=== PATIENT | male | born 1940 | race Caucasian/White ===

== ENCOUNTER 2017-02-09 11:33 | Inpatient (IN) | payer OTHER ==
--- NOTE | 2017-02-09 11:45 | CPEKG ---
Heart Rate: 64 RR Interval: 938 P-R Interval: 252 QRSD Interval: 98 QT Interval: 412 QTC Interval: 425 P [place]: 0 QRS [place]: -34 T Wave [place]: 168 EKG Severity - ABNORMAL ECG - EKG Impression: SINUS ARRHYTHMIA, RATE 50-75 EKG Impression: FIRST DEGREE AV BLOCK EKG Impression: PROBABLE INFERIOR INFARCT, AGE INDETERMINATE EKG Impression: ANTERIOR INFARCT, AGE INDETERMINATE EKG Impression: ST DEPRESSION, CONSIDER ISCHEMIA, LAT LEADS Electronically Signed By: Nirmala Gallegos 09-Feb-2017 17:12:40
--- NOTE | 2017-02-09 11:49 | EDPHY ---
H & P Stated Complaint: pre syncopal event collapsed while hiking HPI/ROS: CHIEF COMPLAINT: Near-syncopal episode, fall HISTORY OF PRESENT ILLNESS: This patient is a 76 year old male with history of coronary artery disease s/p CABG 2010 arriving via EMS following a fall earlier today while on a walk. He went for a long walk this morning, and while finishing second kilometer walking up moderate hill, he felt his legs become weak and he "toppled over", falling and rotating to his right side. Men working on a house nearby witnessed his fall and called EMS. He endorses right-sided chest pain which he feels is muscular. He does not think he passed out and remembers the entire incident. He did not eat breakfast this morning and has not had much water to drink, and believes his symptoms may be related to dehydration. He has taken his medications today as prescribed. He had a similar episode a couple years ago walking on an inclined trail when he did pass out momentarily and fell. He was transported by ambulance for evaluation at that time as well, and admitted for observation. He currently feels weak and "fuzzy-headed" as if he would be dizzy if he were standing. No shortness of breath, fever, vomiting or diarrhea, no blood in his stool, or other associated symptoms. REVIEW OF SYSTEMS: A ten point review of systems was performed and is negative with the exception of the items mentioned in the HPI. - Personal History Current Tetanus/Diphtheria Vaccine: Yes Tetanus Vaccine Date: 2015 - Medical/Surgical History PMH: 1. Hypertension 2. Coronary artery disease status post 7-vessel CABG 01/2011 3. Type II Diabetes Mellitus 4. Prostate cancer 5. Right knee arthroscopy 6. Radical prostatectomy Hx Asthma: No Hx Chronic Respiratory Disease: No Hx Diabetes: Yes Hx Cardiac Disease: Yes Hx Renal Disease: No Hx Cirrhosis: No Hx Alcoholism: No Hx HIV/AIDS: No Hx Splenectomy or Spleen Trauma: No - Social History Smoking Status: Former smoker Additional Social History: . Lives in [place]. Former tobacco use, quit 40 years ago. Occasional alcohol use. 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 - Physical Exam Exam: General Appearance: Alert. Vital signs reviewed. Blood pressure 98/61. Head: Normocephalic, atraumatic. No Bartlett's sign. Eyes: Pupils equal and round, no conjunctival injection, no discharge. Anicteric. ENT, Mouth: Mucous membranes are dry, no oropharyngeal erythema or edema. Neck: No lymphadenopathy, supple. Nontender over cervical spine in the midline. Respiratory: Lungs are clear to auscultation; no wheezes, rales, or rhonchi. Cardiovascular: Bradycardic. No murmur, rub, or gallop. Chest: Tenderness to right of sternum, mid thoracic anterior ribcage. Gastrointestinal: Abdomen is soft and nontender, no masses or organomegaly, bowel sounds normal. Skin: Warm and dry, no rashes on exposed skin, normal color. Back: Nontender to palpation over the thoracolumbar spine. No CVAT. Extremities: No lower extremity edema, no calf tenderness or swelling. Neurological: Alert and oriented. Moving all four extremities easily and equally. Cranial nerves II through XII are examined and are intact (visual acuity not tested). Strength is 5 over 5 bilaterally with testing of all major motor groups. Sensation is intact to light touch over all 4 extremities. Psychiatric: Normal affect. Constitutional: Initial Vital Signs Temperature (C) 36.5 C 02/09/17 11:39 Heart Rate 65 02/09/17 11:39 Respiratory Rate 19 02/09/17 11:39 Blood Pressure 98/61 L 02/09/17 11:39 O2 Sat (%) 93 02/09/17 11:39 O2 Delivery Mode Room Air Allergies/Adverse Reactions: famotidine [From Pepcid] Allergy (Severe, Verified 02/09/17 11:37) Itching Home Medications: Medication Instructions Recorded Ascorbic Acid [Vitamin C 500 mg 500 mg PO DAILY 04/22/16 (*)] Carvedilol [Coreg (*)] 25 mg PO BIDMEAL 04/22/16 Cholecalciferol Vit D3 [Vitamin D3 1,000 units PO DAILY 04/22/16 (*)] Donepezil HCl [Aricept 5 MG (*)] 5 mg PO DAILY 04/22/16 Liraglutide [Victoza 3-Dio] 1.8 mg SC HS 04/22/16 Oxybutynin Chloride [Ditropan 5mg 10 mg PO DAILY 04/22/16 (RX)] Sertraline HCl [Zoloft 25mg (*)] 25 mg PO HS 04/22/16 amLODIPine BESYLATE [Norvasc 5 mg 5 mg PO HS 04/22/16 (*)] Aspirin EC [Aspirin EC 81 mg (*)] 81 mg PO DAILY 02/09/17 Medical Decision Making - Diagnostics EKG Interpretation: EKG interpreted by me in [facility]. Imaging: Discussed imaging studies w/ registration rep Radiologist ED Course/Re-evaluation: 76-year-old male who reportedly fell because of diffuse leg weakness while walking. He denies loss of consciousness or syncope. He denies any chest pain at the time of this fall. There were no preceding symptoms. He uses a walking stick for balance. His only complaint at the time of my evaluation is of right- sided chest pain. In review of his records, I see that he has had 2 previous similar events that caused him to be admitted to the hospital--1 in February of 2014 and 1 in April of 2016. He was initially hypotensive with a blood pressure of 96/62. He received 500 mL of normal saline, started EN route. His hypotension resolved and did not return while in the emergency department. In fact, he became hypertensive. He received an additional 1000 mL of IV normal saline in the emergency department. Today's EKG is abnormal. He has a 1st degree AV block with a variable rate. P waves are present, this is a sinus rhythm. Has evidence of an inferior infarct with inferior Q-waves and also anterior Q-waves. There is ST depression laterally that is seen on an EKG in January of 2011. Blood work today reveals a normal troponin. This is being repeated at 4:30 p.m.. Blood sugar is elevated at 215. Creatinine is mildly elevated at 1.5. D-dimer was elevated at 1.5--there is concern about PE in the setting of possible syncope. Chest x-ray was performed (sixth rib fracture seen,no pneumonia, cardiomegaly) and this was followed by CT angiogram of the chest. No pulmonary embolus. He does have acute rib fractures of ribs 6, 7, and 8 on the right. There is a small pulmonary contusion. No pneumothorax. He has not required pain medication for his rib fractures. Ultimately, the patient stood the bedside prior to an attempted ambulation. He felt lightheaded and was unable to walk because of being off balance. He was not hypotensive at that time. I re-evaluated him. Aside from this ataxia, there were no neurologic findings on exam. CT scan of the head was obtained. No acute intracranial hemorrhage or subdural. 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 When I relayed these findings to the patient he was surprised to hear that he had ever had a stroke. I made a 2nd attempt to stand at the bedside. It is my impression that he has truncal ataxia and I remain concerned about a cerebellar process. He will need an MRI scan of the brain with and without contrast to further assess. Clearly cannot return home, as he is unable to walk. I spoke with his who tells me that he normally ambulates in the house independently. He does use a walking stick when out and about. She states that he has some balance problems but nothing like what we are seeing today. She also tells me that he has what she calls "transient loss of consciousness". She describes episodes in which he lglazes over and falls to the ground. He appears to lose consciousness briefly. This occurs infrequently. No seizure activity has ever been noted. He is being admitted to the hospitalist service. I have spoken with Dr. Bernard Wellington who will consult as a trauma specialist, given that this patient has fallen and fractured 3 ribs. I have also consulted with Dr. Vazquez, neurology , who agrees that this patient would not be a candidate for tPA. He does not recommend stroke alert or any further emergency department evaluation. He feels that the evaluation can be completed as an inpatient. At this point, do not know if today's event is the result of acute CVA, sequelae of previous CVA, syncopal, or even possibly seizure activity. - Data Points Laboratory Results: Laboratory Results 02/09/17 11:30 02/09/17 11:30 Medications Given: Acetaminophen (Tylenol) 650 mg PO Q4HRS PRN PRN Reason: Pain, Mild/Fever, Can Take PO Stop: 08/08/17 17:29 Last Admin: 02/10/17 05:38 Dose: 650 mg Amlodipine Besylate (Norvasc) 5 mg PO HS [facility] Stop: 08/09/17 20:59 Last Admin: 02/11/17 20:41 Dose: 5 mg Aspirin Buffered (Aspirin Ec) 81 mg PO DAILY [facility] Stop: 08/10/17 08:59 Last Admin: 02/11/17 09:24 Dose: 81 mg Carvedilol (Coreg) 12.5 mg PO BIDMEAL [facility] Stop: 08/09/17 08:59 Last Admin: 02/11/17 18:09 Dose: 12.5 mg Clopidogrel Bisulfate (Plavix) 75 mg PO DAILY [facility] Stop: 08/09/17 16:59 Last Admin: 02/11/17 09:24 Dose: 75 mg Donepezil HCl (Aricept) 5 mg PO DAILY [facility] Stop: 08/09/17 08:59 Last Admin: 02/11/17 09:24 Dose: 5 mg Heparin Sodium (Porcine) (Heparin Sc Injection) 5,000 unit SC Q8 [facility] Stop: 08/08/17 21:59 Last Admin: 02/12/17 06:07 Dose: 5,000 unit Insulin Human Lispro (Humalog Lispro) 0 unit SC TIDMEAL [facility] PRN Reason: Protocol Stop: 08/08/17 17:59 Last Admin: 02/11/17 18:10 Dose: 2 unit Lidocaine (Lidoderm 5%) 1 ea TD DAILY [facility] Stop: 08/10/17 10:59 Last Admin: 02/11/17 15:26 Dose: 1 ea Magnesium Hydroxide (Milk Of Magnesia) 30 ml PO DAILY PRN; Protocol PRN Reason: Constipation Stop: 08/10/17 10:49 Last Admin: 02/11/17 12:39 Dose: 30 ml Miscellaneous Information (Patch Removal) 1 ea TD DAILY21 [facility] Stop: 08/10/17 20:59 Last Admin: 02/12/17 04:50 Dose: 1 ea Oxycodone HCl (Oxycodone Ir) 5 mg PO Q4HRS PRN PRN Reason: Pain, Severe Able to Take PO Stop: 02/19/17 17:43 Last Admin: 02/11/17 09:24 Dose: 5 mg Senna/Docusate Sodium (Senokot-S) 1 - 2 tab PO BID [facility] PRN Reason: Protocol Stop: 08/10/17 10:49 Last Admin: 02/11/17 20:40 Dose: 2 tab Sertraline HCl (Zoloft) 25 mg PO HS [facility] Stop: 08/08/17 20:59 Last Admin: 02/11/17 20:40 Dose: 25 mg Discontinued Medications Aspirin (Aspirin) 325 mg PO DAILY [facility] Stop: 02/04/18 17:29 Last Admin: 02/10/17 10:06 Dose: 325 mg Atorvastatin Calcium (Lipitor) 40 mg PO DAILY [facility] Stop: 08/08/17 18:14 Last Admin: 02/11/17 09:23 Dose: 40 mg Carvedilol (Coreg) 25 mg PO BIDMEAL [facility] Stop: 08/09/17 08:59 Last Admin: 02/10/17 10:11 Dose: 25 mg Sodium Chloride (Ns) 1,000 mls @ 0 mls/hr IV ONCE ONE PRN Reason: Wide Open Stop: 02/09/17 13:19 Last Admin: 02/09/17 13:31 Dose: 1,000 mls Sodium Chloride (Ns) 1,000 mls @ 100 mls/hr IV CONT [facility] Stop: 02/10/17 03:29 Last Admin: 02/09/17 19:38 Dose: 1,000 mls Perflutren Lipid Microsphere (Definity) 1.1 mg IV ONCE ONE Stop: 02/10/17 12:16 Last Admin: 02/10/17 14:24 Dose: Not Given Departure - Departure Disposition: [facility] Inpatient Acute Clinical Impression: Ataxia Fall Qualifiers: Encounter type: initial encounter Qualified Code(s): W19.XXXA - Unspecified fall, initial encounter Ribs, multiple fractures Qualifiers: Encounter type: initial encounter Fracture type: closed Laterality: right Qualified Code(s): S22.41XA - Multiple fractures of ribs, right side, initial encounter for closed fracture Condition: Fair Report Scribed for: Nirmala Gallegos Report Scribed by: Amirah Nance Date of Report: 02/09/17 Time of Report: 12:27 Physician Review and Approval Statement: 02/09/17 11:49 Portions of this note were transcribed by the medical lab scientist. I, Dr. Nirmala Gallegos, personally performed the history, physical exam, and medical decision- making; and confirmed the accuracy of the information in the transcribed note.
[2017-02-09 12:52] LABS: % IMMATURE GRANULYOCYTES 0.6 % (0.0-1.1); ABSOLUTE IMMATURE GRANULOCYTES 0.04 10^3/uL (0.00-0.10); ADD DIFF? NO; ADD MORPH? NO; ADD SCAN? NO; ATYPICAL LYMPHOCYTE FLAG 0 (0-99); FRAGMENT RBC FLAG 0 (0-99); HEMOGLOBIN 13.7 g/dL (13.7-17.5); LEFT SHIFT FLG 0 (0-99); LIPEMIA HEMOLYSIS FLAG 90 (0-99); MEAN CELL HEMOGLOBIN CONCENTR. 34.3 g/dL (32.4-36.7); MEAN CELL VOLUME 90.5 fL (81.5-99.8); MEAN PLATELET VOLUME 11.6 fL (8.7-11.7); PLATELET CLUMPS FLAG 0 (0-99); PLATELET COUNT 214 10^3/uL (150-400); RED BLOOD CELL COUNT 4.42 10^6/uL (4.40-6.38); RED CELL DISTRIBUTION WIDTH 13.3 % (11.5-15.2)
[2017-02-09 12:57] LABS: ANION GAP 16 mEq/L (8-16); CARBON DIOXIDE 21 mEq/l (22-31); CHLORIDE 102 mEq/L (97-110); CREATININE 1.5 mg/dL (0.7-1.3); GLOMERULAR FILTRATION RATE 46; GLUCOSE 215 mg/dL (70-100); POTASSIUM 4.5 mEq/L (3.5-5.2); SODIUM 139 mEq/L (134-144)
[2017-02-09 13:18] LABS: TROPONIN I 0.017 ng/mL (0-0.034)
[2017-02-09] MEDS ORDERED: NS 1,000 ML IV ONE (13:18)
[2017-02-09] MEDS ORDERED: IOPAMIDOL (ISOVUE 370) 100 ML BTL IV ONE (13:31)
[2017-02-09] MEDS ORDERED: ONDANSETRON 4 MG/2 ML VIAL IVP PRN (17:30)
[2017-02-09] MEDS ORDERED: LABETALOL HCL 5 MG/ML 20 ML MDV IVP PRN (17:30)
[2017-02-09] MEDS ORDERED: ONDANSETRON DISINTEGRATING 4 MG TAB PO PRN (17:30)
[2017-02-09] MEDS ORDERED: NS 1,000 ML IV SCH (17:30)
[2017-02-09] MEDS ORDERED: D50W 25 GM/50 ML SYR IVP PRN (17:38)
[2017-02-09] MEDS ORDERED: HYDROmorphONE/DILAUDID 1 MG/ML SYR IVP PRN (17:44)
--- NOTE | 2017-02-09 17:54 | PDGENHP ---
History and Physical - Chief Complaint fall vs syncope - History of Present Illness 76 yo male with h/o CAD, hypertension and type 2 diabetes presents to ED via EMS after a fall while hiking. He reports going out for a hike and on the final stretch uphill to his house, he felt weak, SOB, and went down. Apparently this was witnessed by some construction workers and EMS was called. He denied any CP or heart palpitations prior to the event. He does endorse feeling a little dizzy prior to falling. He doesn't think he hit his head and denies LOC. He fell onto his right side and xrays in the ED showed acute rib fractures. He had a similar event in 2013 at which time he was admitted to the hospital after a fall while hiking. That was thought due to hypovolemia. A brain MRI in 09/2015 showed an old right cerebellar infarct and microvascular disease. He is unaware of a prior stroke. He is also treated for dementia. CT in the ED was negative for a bleed. The prior cerebellar infarct was noted, along with old basal ganglia and lacunar infarcts. No acute infarct was identified. He was unable to stand due to profound weakness and dizziness. He is admitted to the hospital for further evaluation. History Information - Allergies/Home Medication List Allergies/Adverse Reactions: famotidine [From Pepcid] Allergy (Severe, Verified 02/09/17 11:37) Itching Home Medications: Ascorbic Acid [Vitamin C 500 mg (*)] 500 mg PO DAILY 04/22/16 [Last Taken ] Carvedilol [Coreg (*)] 25 mg PO BIDMEAL 04/22/16 [Last Taken 02/09/17] Cholecalciferol Vit D3 [Vitamin D3 (*)] 1,000 units PO DAILY 04/22/16 [Last Taken 02/09/17] Donepezil HCl [Aricept 5 MG (*)] 5 mg PO DAILY 04/22/16 [Last Taken 04/22/16] Liraglutide [Victoza 3-Dio] 1.8 mg SC HS 04/22/16 [Last Taken 02/08/17] Oxybutynin Chloride [Ditropan 5mg (RX)] 10 mg PO DAILY 04/22/16 [Last Taken ] Sertraline HCl [Zoloft 25mg (*)] 25 mg PO HS 04/22/16 [Last Taken 02/08/17] amLODIPine BESYLATE [Norvasc 5 mg (*)] 5 mg PO HS 04/22/16 [Last Taken 02/08/17] Aspirin EC [Aspirin EC 81 mg (*)] 81 mg PO DAILY 02/09/17 [Last Taken 02/09/17] I have personally reviewed and updated: family history, medical history, social history, surgical history - Past Medical History coronary artery disease, dementia, diabetes type 2, hypertension, recent fracture - Surgical History Reports: coronary bypass surgery Additional surgical history: CABG x6 2010 - Family History Positive for: non-pertinent - Social History Smoking Status: Former smoker Alcohol Use: None Drug Use: None Additional social history: Lives independently with his , who is present at the bedside. Review of Systems ROS: 10pt was reviewed & negative except for what was stated in HPI & below Physical Exam Temp Pulse Resp BP Pulse Ox 36.3 C 53 L 17 145/84 H 90 L 02/09/17 17:13 02/09/17 17:13 02/09/17 17:13 02/09/17 17:13 02/09/17 17:13 Constitutional: no apparent distress Eyes: PERRL Ears, Nose, Mouth, Throat: moist mucous membranes Cardiovascular: regular rate and rhythym, no murmur, rub, or gallop Respiratory: no respiratory distress, clear to auscultation Gastrointestinal: normoactive bowel sounds, soft, non-tender abdomen Genitourinary: no bladder fullness Skin: warm Musculoskeletal: other (no facial asymmetry, speech fluent, pronator drift neg, 5/5 proximal LLE strength 4/5 proximal RLE strength) Neurologic: AAOx3 Psychiatric: interacting appropriately, poor memory Lab Data & Imaging Review 02/09/17 11:30 02/09/17 11:30 WBC 6.51 10^3/uL (3.80-9.50) 02/09/17 11:30 RBC 4.42 10^6/uL (4.40-6.38) 02/09/17 11:30 Hgb 13.7 g/dL (13.7-17.5) 02/09/17 11:30 Hct 40.0 % (40.0-51.0) 02/09/17 11:30 MCV 90.5 fL (81.5-99.8) 02/09/17 11:30 MCH 31.0 pg (27.9-34.1) 02/09/17 11:30 MCHC 34.3 g/dL (32.4-36.7) 02/09/17 11:30 RDW 13.3 % (11.5-15.2) 02/09/17 11:30 Plt Count 214 10^3/uL (150-400) 02/09/17 11:30 MPV 11.6 fL (8.7-11.7) 02/09/17 11:30 Neut % (Auto) 64.4 % (39.3-74.2) 02/09/17 11:30 Lymph % (Auto) 24.1 % (15.0-45.0) 02/09/17 11:30 [place] % (Auto) 6.9 % (4.5-13.0) 02/09/17 11:30 Eos % (Auto) 2.9 % (0.6-7.6) 02/09/17 11:30 Baso % (Auto) 1.1 % (0.3-1.7) 02/09/17 11:30 Nucleat RBC Rel Count 0.0 % (0.0-0.2) 02/09/17 11:30 Absolute Neuts (auto) 4.19 10^3/uL (1.70-6.50) 02/09/17 11:30 Absolute Lymphs (auto) 1.57 10^3/uL (1.00-3.00) 02/09/17 11:30 Absolute Monos (auto) 0.45 10^3/uL (0.30-0.80) 02/09/17 11:30 Absolute Eos (auto) 0.19 10^3/uL (0.03-0.40) 02/09/17 11:30 Absolute Basos (auto) 0.07 10^3/uL (0.02-0.10) 02/09/17 11:30 Absolute Nucleated RBC 0.00 10^3/uL (0-0.01) 02/09/17 11:30 Immature Gran % 0.6 % (0.0-1.1) 02/09/17 11:30 Immature Gran # 0.04 10^3/uL (0.00-0.10) 02/09/17 11:30 D-Dimer 1.51 ug/mLFEU (0.00-0.50) H 02/09/17 11:30 Sodium 139 mEq/L (134-144) 02/09/17 11:30 Potassium 4.5 mEq/L (3.5-5.2) 02/09/17 11:30 Chloride 102 mEq/L (97-110) 02/09/17 11:30 Carbon Dioxide 21 mEq/l (22-31) L 02/09/17 11:30 Anion Gap 16 mEq/L (8-16) 02/09/17 11:30 BUN 14 mg/dL (7-23) 02/09/17 11:30 Creatinine 1.5 mg/dL (0.7-1.3) H 02/09/17 11:30 Estimated GFR 46 02/09/17 11:30 Glucose 215 mg/dL (70-100) H 02/09/17 11:30 Calcium 10.0 mg/dL (8.5-10.4) 02/09/17 11:30 Troponin I 0.015 ng/mL (0-0.034) 02/09/17 16:38 Assessment & Plan Assessment: Fall / LE weakness - Query CVA vs orthostasis / volume depletion. CT neg for bleed or acute infarct. Some concern for a posterior circulation event. CTPA neg for PE -MRA head and neck to r/o large vessel occlusion -Admit to neuro floor -Check orthostatic VS, hydrate with IVF's -Monitor on telemetry for cardiac etiology of fall (?syncope) -Echo ordered -Full dose ASA now and cont daily ASA -Start statin, lipid panel in am -Neurology to consult in am Hypertension - permissive hypertension while further CVA w/u as above. -IV Labetalol for SBP >220 / DBP >120 -Resume Carvedilol and Norvasc tomorrow CAD s/p 6 v. CABG in 2010 - Pt is chest pain free. Initial troponins negative x2. EKG is abnormal with downsloping ST depression in lateral leads associated with T wave inversions, concerning for ischemia. This is new from prior EKG in 2013. -repeat EKG now to assess for dynamic changes -cont to trend troponin -cont ASA, BB, statin -likely needs stress test prior to dc Rib fractures - secondary to fall. -pain control, IS, prn O2 -trauma service to consult Type 2 DM - will check a1c and give SSI for glycemic control. TOMMY - Cr 1.5, up from baseline of 1 -NS overnight and recheck in am Pulmonary nodules - incidental finding on CT. -Outpt f/u imaging AAA - 4.5 cm. Will also need outpt f/u. Full code DVT PPLX - high risk, Heparin Dispo - inpt. Will likely require >48 hrs hospitalization for manage
[2017-02-09] MEDS: ACETAMINOPHEN 325 MG TAB PO PRN ×2 (18:04→22:21)
[2017-02-09] MEDS: oxyCODONE IR 5 MG TAB PO PRN ×2 (18:04→22:21)
[2017-02-09] MEDS: ASPIRIN 325 MG TAB PO SCH (18:04)
--- NOTE | 2017-02-09 18:39 | CPEKG ---
Heart Rate: 72 RR Interval: 833 P-R Interval: 256 QRSD Interval: 104 QT Interval: 400 QTC Interval: 438 P [place]: -12 QRS [place]: -40 T Wave [place]: 173 EKG Severity - ABNORMAL ECG - EKG Impression: SINUS RHYTHM EKG Impression: FIRST DEGREE AV BLOCK EKG Impression: PROBABLE INFERIOR INFARCT, AGE INDETERMINATE EKG Impression: ANTERIOR INFARCT, AGE INDETERMINATE Electronically Signed By: Rickey Cortes 10-Feb-2017 21:02:57
[2017-02-09] MEDS: ATORVASTATIN CALCIUM 40 MG TAB PO SCH (19:37)
[2017-02-09] MEDS: INSULIN LISPRO 100 UNIT/ML SC SCH (19:39)
[2017-02-09 20:07] LABS: HEMOGLOBIN A1C 7.3 % (4.0-6.0)
[2017-02-09] MEDS ORDERED: GADOBUTROL 10 ML VIAL IVP ONE (20:20)
--- NOTE | 2017-02-09 22:19 | GCON ---
[f rep st] CONSULTATION HISTORY OF PRESENT ILLNESS: This patient is a 76-year-old male with a history of coronary artery disease, status post CABG, a radical prostatectomy, type 2 diabetes, and hypertension, who presented to the emergency department after a fall while hiking on a gravel path near his home. He says he did not hit his head, and did not lose consciousness. He thinks he felt weak and perhaps a little dizzy before his fall. He says he does not recall tripping on anything. He fell mostly on his right side, and currently, his only pain is in his right anterolateral chest. He thinks he may have been dehydrated. Since being admitted, he has had 2 stable EKGs with 2 normal troponin levels taken. He has had a chest x-ray and a CT angiogram that showed fractures of the right ribs 6 through 8 with minimal displacement, pulmonary contusion. No pneumothorax, no pulmonary embolus. There has been some concern that stroke could be the cause of his presyncopal episode, and so a head CT was obtained, which showed some old infarcts with nothing definitely acute. Of note, he and his deny slurred speech, facial droop, weakness in 1 extremity, or vision changes. He does report some bilateral lower extremity weakness on occasion. He has been admitted to the medicine service for further testing and observation , and Trauma has been consulted. PAST MEDICAL HISTORY: Type 2 diabetes, coronary artery disease, hypertension, dementia. PAST SURGICAL HISTORY: Coronary artery bypass surgery, radical prostatectomy, tonsillectomy. HOME MEDICATIONS: Include amlodipine, aspirin, carvedilol, Aricept, Victoza, Ditropan, Zoloft, vitamin D, vitamin C. ALLERGIES: Famotidine causes itching. SOCIAL HISTORY: Patient is currently a nonsmoker and does not drink alcohol. He lives independently with his . FAMILY HISTORY: Noncontributory. REVIEW OF SYSTEMS: A 10-point review of systems is negative aside from that listed above. PHYSICAL EXAMINATION: GENERAL: Reveals a well-developed, well-nourished, 76- year-old male, alert and oriented, in no acute distress. HEENT: Normocephalic , atraumatic. Pupils equal and round. Tongue midline. No neck bruits. No otorrhea. PULMONARY: Clear to auscultation bilaterally. No wheezes, rhonchi, or rales. Full breath sounds. Right lateral chest wall tenderness. No clavicular tenderness. CARDIAC: Regular rate and rhythm without murmurs. ABDOMEN: Soft, nontender. No rebound. No guarding. EXTREMITIES: Warm, dry, well perfused, with palpable radial dorsalis pedis and posterior tibialis pulses. No lower extremity point tenderness. Mild small abrasion on the right knee. IMPRESSION: This is a 76-year-old male with a fall, probably presyncopal with right-sided 6 through 8 rib fractures. Rule out stroke or cardiac cause of fall. PLAN: The patient has been admitted to the medicine service, which is appropriate. They will be following up with serial troponins and EKGs. Also I believe an echo has been ordered. I see plans for a brain MRA. We will obtain a chest x-ray in the morning to confirm stability and rule out delayed pneumothorax. He also has pulmonary nodules and abdominal aortic aneurysm that had been seen on imaging, and so I will be sure to add outpatient followup instructions immediately so this does not get missed, once he is appropriate for discharge. I also discussed with Dr. Wellington, who will see the patient this evening. /[id number]/MODL MTDD
[2017-02-09] MEDS: HEPARIN 5,000 UNIT/0.5 ML SYR SC SCH (22:20)
[2017-02-09] MEDS: SERTRALINE HCL 25 MG TAB PO SCH (22:21)
[2017-02-10] MEDS: HEPARIN 5,000 UNIT/0.5 ML SYR SC SCH ×3 (05:33→20:44)
[2017-02-10] MEDS: ACETAMINOPHEN 325 MG TAB PO PRN (05:38)
[2017-02-10 05:49] LABS: ANION GAP 10 mEq/L (8-16); CALCIUM 9.6 mg/dL (8.5-10.4); CARBON DIOXIDE 21 mEq/l (22-31); CHLORIDE 107 mEq/L (97-110); CHOLESTEROL 188 mg/dL (140-220); CHOLESTEROL/HDL RATIO 3.62 RATIO (1.00-4.97); CREATININE 1.3 mg/dL (0.7-1.3); GLOMERULAR FILTRATION RATE 54; GLUCOSE 115 mg/dL (70-100); HIGH DENSITY LIPOPROTEIN 52 mg/dL (40-65); LDL/HDL RATIO 2.17 RATIO (1.00-3.64); LOW DENSITY LIPOPROTEIN 113 mg/dL (80-100); NON-HIGH DENSITY LIPOPROTEIN 136 mg/dL (90-129); POTASSIUM 3.8 mEq/L (3.5-5.2); SODIUM 138 mEq/L (134-144); TRIGLYCERIDE 116 mg/dL (40-150); VERY LOW DENSITY LIPOPROTEINS 23 mg/dL (8-25)
--- NOTE | 2017-02-10 08:32 | SOAPPROG ---
SOAP Progress Note Assessment/Plan: Assessment: Plan: Subjective: right rib fx s/p fall lungs clear, minimal pain. no specific tx for rib fx- dc when ok per primary care team. Objective: Vital Signs Temp Pulse Resp BP Pulse Ox 36.7 C 64 16 127/78 H 94 02/10/17 07:44 02/10/17 07:44 02/10/17 07:44 02/10/17 07:44 02/10/17 07:44 Microbiology 02/09/17 16:20 Gram Stain - Final Other - Tissue 02/09/17 16:20 Gram Stain - Final Other - Tissue 02/09/17 16:20 Gram Stain - Final Other - Eswab 02/09/17 16:20 Gram Stain - Final Other - Eswab Laboratory Results 02/10/17 05:20 02/09/17 02/10/17 02/11/17 05:59 05:59 05:59 Intake Total 1798 Output Total 300 Balance 1498 ICD10 Worksheet Patient Problems: Problems Problem Status Onset Ataxia Acute Fall Acute Ribs, multiple fractures Acute [place] I fracture Acute
[2017-02-10] MEDS ORDERED: CARVEDILOL 25 MG TAB PO SCH (09:00)
--- NOTE | 2017-02-10 09:55 | ECHO ---
[id number] + + [address] : : [place] [address] : : [phone] + + Adult Echocardiographic Report + -----+ :Name: Janine MERCADO Date: 02/10/2017 08:29 AM : : Hospital Admission Number: [id number] Location : 359: :: 1940 Gender: Male Height: 71 in : :Age: 76 yrs Race: WH Weight: 190 lb : :Reason For Study: Eval LV Fx : : BSA: 2.1 meters2 : :History: Ischemic Stroke w/ Bubble : + -----+ MMode/2D Measurements \T\ Calculations IVSd: 0.90 cm LVIDd: 5.6 cm FS: 25.4 % Ao root diam: 3.4 cm LVPWd: 1.2 cm LVIDs: 4.2 cm EDV(Teich): 154.5 ml ACS: 2.1 cm ESV(Teich): 77.9 ml EF(Teich): 49.5 % LVOT diam: 2.0 cm LVOT area: 3.1 cm2 Normal Measurement Values: + + :LVIDd (3.5-5.7cm) IVSd (0.6-1.1cm) LVPWd (0.6-1.1cm) Aortic Root (2.0-3.7cm)Left Atrium (1.5-4.0cm): :LV Vol(d) (76-115ml) LV Vol(s) (29-48ml) Ejec Fraction (50-65%)PV Kwabena (0.6- 1.2m/s) TV Kwabena (0.4-1.0m/s) : :MV E Kwabena (0.8-1.0m/s)MV A Kw[place] (0.3-1.0m/s)LVOT Kw[place] (0.7-1.2m/s) Asc Ao Kwabena ( 0.9-1.8m/s) : + + Doppler Measurements \T\ Calculations MV V2 mean: Ao V2 max: AI max kwabena: LV V1 max: 90.1 cm/sec 152.0 cm/sec 408.6 cm/sec 95.8 cm/sec MV mean PG: Ao max PG: AI max P.8 mmHg LV V1 max P.9 mmHg 9.2 mmHg AI dec slope: 3.7 mmHg MV V2 VTI: Ao mean PG: LV V1 mean P.6 cm 43.3 mmHg 229.2 cm/sec2 2.2 mmHg Ao V2 mean: AI P1/2t: 522.1 msec LV V1 mean: MVA(VTI): 1.7 cm2 321.0 cm/sec 68.1 cm/sec Ao V2 VTI: LV V1 VTI: 21.8 cm 194.4 cm FLACO(I,D): 0.35 cm2 FLACO(V,D): 2.0 cm2 SV(LVOT): 68.5 ml PA V2 max: PI end-d kwabena: TR max kwabena: 78.7 cm/sec 107.2 cm/sec 243.0 cm/sec PA max PG: TR max P.5 mmHg 23.6 mmHg RAP systole: 5.0 mmHg RVSP(TR): 28.6 mmHg Left Ventricle The left ventricle is normal in size. There is normal left ventricular wall thickness. Ejection Fraction = 45-50%. There is Doppler evidence for diastolic dysfunction. There are regional wall motion abnormalities as specified. Antonio-septal akinesis. Query prior CA. Right Ventricle The right ventricle is normal in size and function. Atria The left atrium is moderately dilated. Right atrial size is normal. Injection of contrast documented an interatrial shunt. A patent foramen ovale is present. Mitral Valve The mitral valve is normal. There is no mitral valve stenosis. There is trace mitral regurgitation. Tricuspid Valve There is trace to mild tricuspid regurgitation. Right ventricular systolic pressure is normal. Aortic Valve The aortic valve is trileaflet. There is mild aortic valve calcification. There is no aortic stenosis. Mild to moderate aortic regurgitation. Pulmonic Valve The pulmonic valve is normal in structure and function. There is no pulmonic valvular regurgitation. Great Vessels The aortic root is normal size. Pericardium/Pleural There is no pericardial effusion. Conclusion A complete two-dimensional transthoracic echocardiogram was performed (2D, M-mode, Doppler and color flow Doppler). Ejection Fraction = 45-50%. There is Doppler evidence for diastolic dysfunction. The left atrium is moderately dilated. Injection of contrast documented an interatrial shunt. A patent foramen ovale is present. The mitral valve is normal. There is trace mitral regurgitation. There is trace to mild tricuspid regurgitation. Right ventricular systolic pressure is normal. The aortic valve is trileaflet. There is mild aortic valve calcification. Mild to moderate aortic regurgitation. There is no pericardial effusion. Antonio-septal akinesis. Query prior CA Note: With regional wall motion abnormalities and reduced LV function. Cardiac source of emboli possible. Thrombus not identified. Consider anti- coagulation versus Definity study to further evaluate afor LV thrombus. Final Reading Physician: Sebastián Irby signed on 02/10/2017 09:54 AM Ordering Physician: Daniella Avalos Performed By: Dayron Blount, PEEWEECS
[2017-02-10] MEDS: INSULIN LISPRO 100 UNIT/ML SC SCH ×3 (10:05→18:05)
[2017-02-10] MEDS: ASPIRIN 325 MG TAB PO SCH (10:06)
[2017-02-10] MEDS: DONEPEZIL HCL 5 MG TAB PO SCH (10:06)
[2017-02-10] MEDS: oxyCODONE IR 5 MG TAB PO PRN ×2 (10:09→13:57)
[2017-02-10] MEDS: ATORVASTATIN CALCIUM 40 MG TAB PO SCH (10:09)
[2017-02-10] MEDS ORDERED: PERFLUTREN LIPID MICROSPHERES 1.1 MG/ML VIAL IV ONE (12:15)
--- NOTE | 2017-02-10 13:37 | GCON ---
[f rep st] CONSULTATION NEUROLOGY CONSULT. DATE OF CONSULTATION: 02/10/2017 REFERRING PHYSICIAN: Daniella Avalos MD CHIEF COMPLAINT: Falls. HISTORY OF PRESENT ILLNESS: The patient is a very pleasant 76-year-old gentleman who has had multiple visits recently for the same symptoms of presyncope and falls. Yesterday, he was walking along the [place] and reports he was exerting himself strenuously and was dehydrated. As he was walking home on a slight uphill he suddenly felt lightheaded for 1-2 seconds and felt the premonition he was going to fall. This is identical to previous episodes. He then fell and felt generalized weakness afterwards. He broke ribs with the fall and was brought to the emergency department via EMS. He had a head CT which showed old infarcts and MRA of the head and neck. The MRA of the neck shows chronic occlusion of the right vertebral artery, stenosis at the origin of the left vertebral artery and old right cerebellar infarction. The head MRA revealed again the occlusion of the right vertebral artery with old right cerebellar infarct. 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 In addition, he has origin of the left posterior cerebral artery from the left ICA. In regard to his left ICA, his estimated stenosis is around 40% based on the MRA neck. Diffusion-weighted imaging was done during the head MRA which showed no acute infarct. He states that overnight he got back to baseline in terms of his sensation of strength etc. He has rehydrated. His initial creatinine in the emergency department was 1.5 and now it is 1.3. He denies any focal symptoms. He felt generalized weakness with this and then afterwards perhaps more weakness in his legs and arms, but he could not be sure if it was just in his legs versus generalized weakness. Certainly no lateralized symptoms, aphasia or visual field cuts. REVIEW OF SYMPTOMS: A 10-point review was done, only pertinent in HPI. Past medical history, social history, family history, allergies, and home medications please refer to Dr. Avalos's history and physical. PHYSICAL EXAMINATION: VITAL SIGNS: Temperature 36.3, pulse 53, respirations 17 , blood pressure 145/84. GENERAL: He is in no acute distress. Very pleasant. HIGHER MENTAL FUNCTION: He is awake and alert. There is no aphasia. CRANIAL NERVES: Normal exam 2 through 7 and 12. MOTOR EXAM: He has no focal weakness or change in reflexes or tone throughout. SENSORY EXAM: Normal to light touch. COORDINATION: He does have some essential tremor with posture. Otherwise fairly accurate [id number] and [id number]. We did test his gait and he was unsteady with unassisted gait. Billing information: 70 total minutes floor reviewing past records, current angiography findings and in direct exam and counseling with the patient. TESTING: He also had an echocardiogram which showed likely changes of an old myocardial infarction with anteroseptal akinesis. There was no thrombus identified within the heart. IMPRESSION/PLAN: 1. Presyncope with fall. 2. Intracranial atherosclerosis. 3. Chronic cerebral infarctions. Overall, my impression is the patient became clinically dehydrated and had a presyncopal episode with a fall resulting in the rib fractures. Certainly, the intracranial atherosclerosis may have become symptomatic or exacerbated in the setting of of dehydration and presyncope. Fortunately, there is no evidence of acute infarction on the diffusion-weighted sequences of the brain. Going forward, in regard to his significant intracranial atherosclerosis, I think we should treat him with dual antiplatelet therapy for the time being with aspirin 81 mg daily plus Plavix 75 mg daily. I counseled him regarding R/B /A of Plavix and dual anti-platelet therapy. I counseled him regarding the findings including the stenosis of the origin of the left vertebral artery. I also recommend he see one of my colleagues in Interventional Neuroradiology, Dr. Shubham Riddle, in [place], to see if he would be a candidate for any intracranial stenting. He can stay on dual antiplatelet therapy until that consultation. In regard to his cardiac findings, certainly it appears he has had a previous myocardial infarction. He has not had an acute stroke with this hospitalization. He likely would not be an ideal candidate for oral anticoagulation based on his fall risk, etc. I will defer to my colleagues in Cardiology for any other recommendations regarding his cardiac findings. Lastly, he will likely need placement into a shelter facility for a few days to regain his baseline strength before going home. He lives independently with his and has family a few blocks away who watch over them as well. No further recommendations now. Plan discussed at length with Dr. Marinelli, his primary hospitalist. The patient will make followup with our office in the next few weeks to review his post hospital course and consultation with Dr. Shubham Riddle. Thank you for this consultation. /[id number]/MODL MTDD
--- NOTE | 2017-02-10 15:35 | ECHO ---
[id number] + + [address] : : [place] [address] : : [phone] + + Adult Echocardiographic Report + -----+ :Name: MAO MERCADOHelen Date: 02/10/2017 12:30 PM : : Hospital Admission Number: [id number] Location : 359: :: 1940 Gender: Male : :Age: 76 yrs Race: WH : :Reason For Study: Eval LV [place] with Definity : :History: Follow up on Apical Wall motion : + -----+ Left Ventricle Definity imaging enhancement was utilized and there is no evidence of an apical thrombus. Conclusion This is a limited echo using Definity to image the LV apex. Definity imaging enhancement was utilized and there is no evidence of an apical thrombus. Final Reading Physician: Sebastián Irby signed on 02/10/2017 03:33 PM Ordering Physician: Daniella Avalos Performed By: Dayron Blount, CS
--- NOTE | 2017-02-10 17:08 | HOSPPROG ---
Hospitalist Progress Note Assessment/Plan: Assessment: 76-year-old male presents with acute mechanical fall in the setting of ataxia resulting from previous posterior CVA, revisitation in the setting of hypotension, TOMMY Plan: 1. Fall. Acute, 2/2 ataxia from prior CVA revisitation - appreciate trauma eval - remains unsafe to ambulate, will require ongoing therapy assessments and SNF 2. Hypertension. Chronic, increase in bblocker in past 3 months, reduce dosage given orthostasis - cont amlodipine 3. CAD. Chronic, acute STD on EKG (personally interpreted) w/o chest pain, potentially 2/2 cerebral hypoperfusion - s/p 6 v. CABG in 2010 - get stress test in 1-2 weeks, avoid in setting of recent cerbral hypoperfusion - cont on asa/plavix/bblocker 4. Rib fractures. Acute, 2/2 fall, pain control, IS, prn O2 5. TOMMY. 2/2 hypovolemia, cont IVF and recheck Cr in AM - positive orthostatics, reduce bblocker 6. Pulmonary nodules. Outpt surveillance 7. 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 Will also need outpt f/u. 8. Vertebral artery occlusion. Chronic, w/ collateral flow as well as anterior-> post circulation, high risk for future CVA, MRI w/o acute infarct but has prior CVA - d/w Dr. Vazquez, recommends asa/plavix/statin - counseled patient that statin benefits > risks, patient will consider, goal LDL 70 (currently 110) Full code DVT PPLX - high risk, Heparin Dispo - requiring ongoing INPT for TOMMY and IVF, therapy assessments and likely SNF Subjective: Counseled patient extensively regarding the cause of his falls being hypovolemia and posterior circulation stenosis, counseled him regarding statin use Objective: Vital Signs Temp Pulse Resp BP Pulse Ox 36.8 C 64 18 132/83 H 99 02/10/17 15:18 02/10/17 15:18 02/10/17 15:18 02/10/17 15:18 02/10/17 15:18 Microbiology 02/09/17 16:20 Mycobacterial Smear (DION) - Final Other - Tissue Mycobacterial Culture - Final 02/09/17 16:20 Fungal Culture - Final Other - Tissue 02/09/17 16:20 Gram Stain - Final Other - Tissue Anaerobic Culture - Final 02/09/17 16:20 Mycobacterial Smear (DION) - Final Other - Tissue Mycobacterial Culture - Final 02/09/17 16:20 Fungal Culture - Final Other - Tissue 02/09/17 16:20 Gram Stain - Final Other - Tissue Anaerobic Culture - Final 02/09/17 16:20 Fungal Culture - Final Other - Eswab 02/09/17 16:20 Gram Stain - Final Other - Eswab Anaerobic Culture - Final 02/09/17 16:20 Fungal Culture - Final Other - Eswab 02/09/17 16:20 Gram Stain - Final Other - Eswab Anaerobic Culture - Final Laboratory Results 02/10/17 05:20 02/09/17 02/10/17 02/11/17 05:59 05:59 05:59 Intake Total 1798 200 Output Total 300 Balance 1498 200 - Time Spent With Patient Time Spent with Patient: greater than 35 minutes Time Spent with Patient: Greater than 35 minutes spent on this patients care, greater than 50% of time spent counseling, educating, and coordinating care regarding the above mentioned plan. - Physical Exam Constitutional: no apparent distress, not in pain, chronically ill appearing, No uncomfortable Cardiovascular: systolic murmur (2/6 at the sternum and apex), No irregularly irregular, No tachycardia, No edema Respiratory: no respiratory distress, no rales or rhonchi, clear to auscultation Gastrointestinal: normoactive bowel sounds, soft, non-tender abdomen, no palpable masses Neurologic: AAOx3 Psychiatric: No anxious, No agitated ICD10 Worksheet Patient Problems: Problems Problem Status Onset Fall Acute LeFort I fracture Acute Ribs, multiple fractures Acute Ataxia Acute
[2017-02-10] MEDS: CARVEDILOL 25 MG TAB PO SCH (18:05)
[2017-02-10] MEDS: CLOPIDOGREL BISULFATE 75 MG TAB PO SCH (18:16)
[2017-02-10] MEDS: SERTRALINE HCL 25 MG TAB PO SCH (20:42)
[2017-02-10] MEDS: amLODIPine BESYLATE 5 MG TAB PO SCH (20:43)
[2017-02-11] MEDS: oxyCODONE IR 5 MG TAB PO PRN ×2 (03:43→09:24)
[2017-02-11 05:17] LABS: ANION GAP 10 mEq/L (8-16); CALCIUM 9.2 mg/dL (8.5-10.4); CARBON DIOXIDE 23 mEq/l (22-31); CHLORIDE 104 mEq/L (97-110); CREATININE 1.3 mg/dL (0.7-1.3); GLOMERULAR FILTRATION RATE 54; GLUCOSE 136 mg/dL (70-100); POTASSIUM 3.7 mEq/L (3.5-5.2); SODIUM 137 mEq/L (134-144)
[2017-02-11] MEDS: HEPARIN 5,000 UNIT/0.5 ML SYR SC SCH ×3 (05:44→20:40)
[2017-02-11] MEDS: INSULIN LISPRO 100 UNIT/ML SC SCH ×3 (08:09→18:10)
[2017-02-11] MEDS: CARVEDILOL 25 MG TAB PO SCH ×2 (09:23→18:09)
[2017-02-11] MEDS: ATORVASTATIN CALCIUM 40 MG TAB PO SCH (09:23)
[2017-02-11] MEDS: DONEPEZIL HCL 5 MG TAB PO SCH (09:24)
[2017-02-11] MEDS: CLOPIDOGREL BISULFATE 75 MG TAB PO SCH (09:24)
[2017-02-11] MEDS: ASPIRIN EC 81 MG TAB PO SCH (09:24)
[2017-02-11] MEDS ORDERED: BISACODYL 10 MG SUPP PR PRN (10:50)
[2017-02-11] MEDS ORDERED: LACTULOSE 20 GM/30 ML UDCUP PO PRN (10:50)
[2017-02-11] MEDS ORDERED: POLYETHYLENE GLYCOL 3350 17 GM PKT PO PRN (10:50)
[2017-02-11] MEDS ORDERED: MAGNESIUM HYDROXIDE 30 ML UDCUP PO PRN (10:50)
--- NOTE | 2017-02-11 11:44 | HOSPPROG ---
Hospitalist Progress Note Assessment/Plan: Assessment: 76-year-old male presents with acute mechanical fall in the setting of ataxia resulting from previous posterior CVA, revisitation in the setting of hypotension, TOMMY Plan: 1. Fall. Acute, 2/2 ataxia from prior CVA revisitation - appreciate trauma eval - remains unsafe to ambulate, will require ongoing therapy assessments and SNF 2. Hypertension. Chronic, increase in bblocker in past 3 months, reduced dosage given orthostasis - cont amlodipine, goal SBP 140-160 given significant neuro stenosis 3. CAD. Chronic, acute STD on EKG (personally interpreted) w/o chest pain, potentially 2/2 cerebral hypoperfusion - s/p 6 v. CABG in 2010 - get stress test in 1-2 weeks, avoid in setting of recent cerbral hypoperfusion - cont on asa/plavix/bblocker/statin 4. Rib fractures. Acute, 2/2 fall, pain control, IS, prn O2 - add lidoderm patch today 5. TOMMY. 2/2 hypovolemia, recheck Cr in AM - positive orthostatics, reduced bblocker 6. Pulmonary nodules. Outpt surveillance 7. 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 Will also need outpt f/u. 8. Vertebral artery occlusion. Chronic, w/ collateral flow as well as anterior-> post circulation, high risk for future CVA, MRI w/o acute infarct but has prior CVA - d/w Dr. Vazquez, recommends asa/plavix/statin and outpt f/u w/ neurovascular specialist in [place] 9. Constipation. Add bowel regimen Full code DVT PPLX - high risk, Heparin Dispo - requiring ongoing INPT therapy assessments and likely SNF Subjective: ongoing rib pain Objective: Vital Signs Temp Pulse Resp BP Pulse Ox 36.7 C 64 12 114/64 91 L 02/11/17 11:35 02/11/17 11:35 02/11/17 11:35 02/11/17 11:35 02/11/17 11:35 Microbiology 02/09/17 16:20 Mycobacterial Smear (DION) - Final Other - Tissue Mycobacterial Culture - Final 02/09/17 16:20 Fungal Culture - Final Other - Tissue 02/09/17 16:20 Gram Stain - Final Other - Tissue Anaerobic Culture - Final 02/09/17 16:20 Mycobacterial Smear (DION) - Final Other - Tissue Mycobacterial Culture - Final 02/09/17 16:20 Fungal Culture - Final Other - Tissue 02/09/17 16:20 Gram Stain - Final Other - Tissue Anaerobic Culture - Final 02/09/17 16:20 Fungal Culture - Final Other - Eswab 02/09/17 16:20 Gram Stain - Final Other - Eswab Anaerobic Culture - Final 02/09/17 16:20 Fungal Culture - Final Other - Eswab 02/09/17 16:20 Gram Stain - Final Other - Eswab Anaerobic Culture - Final Laboratory Results 02/11/17 04:36 02/10/17 02/11/17 02/12/17 05:59 05:59 05:59 Intake Total 1798 1050 Output Total 300 350 Balance 1498 700 - Physical Exam Constitutional: no apparent distress, not in pain, chronically ill appearing, uncomfortable Cardiovascular: systolic murmur (I/ at sternum), No irregularly irregular, No tachycardia, No edema Respiratory: no respiratory distress, no rales or rhonchi, clear to auscultation Gastrointestinal: normoactive bowel sounds, soft, non-tender abdomen, no palpable masses, other (full) Neurologic: sensation intact bilaterally, No weakness (motor 5/5 bilat UE/LE), No facial droop Psychiatric: interacting appropriately, not anxious, not encephalopathic, thought process linear ICD10 Worksheet Patient Problems: Problems Problem Status Onset Fall Acute LeFort I fracture Acute Ribs, multiple fractures Acute Ataxia Acute
[2017-02-11] MEDS: SENNOSIDES/DOCUSATE SODIUM TAB PO SCH ×2 (12:39→20:40)
[2017-02-11] MEDS: LIDOCAINE 5% 1 EA PATCH TD SCH (15:26)
[2017-02-11] MEDS: SERTRALINE HCL 25 MG TAB PO SCH (20:40)
[2017-02-11] MEDS: amLODIPine BESYLATE 5 MG TAB PO SCH (20:41)
[2017-02-11] MEDS ORDERED: PATCH REMOVAL 1 EA PATCH TD SCH (21:00)
[2017-02-12 05:12] LABS: ANION GAP 11 mEq/L (8-16); CALCIUM 9.2 mg/dL (8.5-10.4); CARBON DIOXIDE 21 mEq/l (22-31); CHLORIDE 105 mEq/L (97-110); CREATININE 1.2 mg/dL (0.7-1.3); GLOMERULAR FILTRATION RATE 59; GLUCOSE 150 mg/dL (70-100); POTASSIUM 3.8 mEq/L (3.5-5.2); SODIUM 137 mEq/L (134-144)
[2017-02-12] MEDS: HEPARIN 5,000 UNIT/0.5 ML SYR SC SCH (06:07)
[2017-02-12 07:29] VITALS: PULSE 61
[2017-02-12] MEDS: SENNOSIDES/DOCUSATE SODIUM TAB PO SCH (08:22)
[2017-02-12] MEDS: CARVEDILOL 25 MG TAB PO SCH (08:22)
[2017-02-12] MEDS: ASPIRIN EC 81 MG TAB PO SCH (08:22)
[2017-02-12] MEDS: CLOPIDOGREL BISULFATE 75 MG TAB PO SCH (08:22)
[2017-02-12] MEDS: DONEPEZIL HCL 5 MG TAB PO SCH (08:23)
[2017-02-12] MEDS: LIDOCAINE 5% 1 EA PATCH TD SCH (08:23)
[2017-02-12] MEDS: INSULIN LISPRO 100 UNIT/ML SC SCH ×2 (08:28→11:54)
[2017-02-12] MEDS ORDERED: ATORVASTATIN CALCIUM 10 MG TAB PO SCH (09:00)
--- NOTE | 2017-02-12 09:01 | PDIAF ---
- Diagnosis Diagnosis: Mechanical fall with rib fracture, ataxia 2/2 prior CVA Code Status: Full Code - Medication Management Discharge Medications: Medications to Continue on Transfer Ascorbic Acid [Vitamin C 500 mg (*)] 500 mg PO DAILY 04/22/16 [Last Taken ] Cholecalciferol Vit D3 [Vitamin D3 (*)] 1,000 units PO DAILY 04/22/16 [Last Taken 02/09/17] Donepezil HCl [Aricept 5 MG (*)] 5 mg PO DAILY 04/22/16 [Last Taken 04/22/16] Oxybutynin Chloride [Ditropan] 10 mg PO DAILY 04/22/16 [Last Taken 04/22/16] Sertraline HCl [Zoloft 25mg (*)] 25 mg PO HS 04/22/16 [Last Taken 02/08/17] amLODIPine BESYLATE [Norvasc 5 mg (*)] 5 mg PO HS 04/22/16 [Last Taken 02/08/17] Aspirin EC [Aspirin EC 81 mg (*)] 81 mg PO DAILY 02/09/17 [Last Taken 02/09/17] Acetaminophen [Tylenol 325mg (*)] 650 mg PO Q4HRS PRN #0 tab 02/12/17 [Last Taken Unknown] Atorvastatin Calcium [Lipitor 10 mg (*)] 5 mg PO DAILY tab 02/12/17 [Last Taken Unknown] Carvedilol [Coreg (*)] 12.5 mg PO BIDMEAL tab 02/12/17 [Last Taken Unknown] Clopidogrel Bisulfate [Plavix (*)] 75 mg PO DAILY tab 02/12/17 [Last Taken Unknown] Lidocaine 5% [Lidoderm 5% Patch (*)] 1 ea TD DAILY patch 02/12/17 [Last Taken Unknown] Liraglutide [Victoza 3-Dio] 0.6 mg SC HS #0 02/12/17 [Last Taken 02/08/17] Patch Removal 1 ea TD DAILY21 patch 02/12/17 [Last Taken Unknown] Polyethylene Glycol 3350 [Miralax 17 gm (*)] 17 gm PO DAILY PRN #0 pkt 02/12/17 [Last Taken Unknown] Sennosides/Docusate Sodium [Senokot-S] 1 - 2 tab PO BID tab 02/12/17 [Last Taken Unknown] oxyCODONE IR [Oxycodone Ir (*)] 2.5 mg PO Q4HRS PRN #0 tab 02/12/17 [Last Taken Unknown] Chcf Antibiotics: NA Discharge Medications: Refer to the Discharge Home Medication list for PRN reason. PICC Care - Routine: N/A - Orders Services needed: Registered Nurse, Certified Automation Tender, Physical Therapy, Occupational Therapy, Speech Language Pathologist (cognitive therapy) Oxygen: NA Diet Recommendation: ADA 2000 consistent carb Weigh Patient: weekly Cote: Not applicable Wilfredo Stockings Discontinue Date: while at rehab Wound Care Instructions: encourage regular use of incentive spirometry for rib fractures Activity/Weight Bearing Restrictions: as tolerated with walker/cane Additional: please schedule follow-up consultation with neuroradiology specialist Dr. Shubham Riddle - Labs/Radiology Other Lab Name, Date and Time: check LDL/lipid panel in 6 weeks - Follow Up Care Current Providers and Referrals: Bernard Wellington MD [Medical Doctor] - Patient,NotPresent [Unknown] - As per Instructions Logan Vazquez MD [Medical Doctor] - follow up in 1 week
[2017-02-12 11:33] VITALS: BP 110/67; RESP 14; TEMP 97.6; O2SAT 94
--- NOTE | 2017-02-12 16:02 | PDDCSUM ---
Discharge Summary Discharge Summary: DISCHARGE SUMMARY FOLLOW-UP ITEMS: Repeat LDL in 6 weeks, outpatient stress test in 1-2 weeks, outpatient CT scan annually for pulmonary nodules, ascending aortic aneurysm surveillance DATE OF ADMISSION: 02/09/17 DATE OF DISCHARGE: 02/12/2017 DISCHARGE DIAGNOSES: 1. Acute mechanical fall 2. Chronic hypertension 3. Chronic coronary artery disease 4. Acute rib fractures 5. Acute kidney injury on chronic kidney disease stage 3 6. Chronic vertebral artery occlusion 7. Ascending thoracic aortic aneurysm 8. Pulmonary nodules 9. Vascular dementia CONSULTATIONS: Neurology, trauma PROCEDURES / IMAGING: CT angiogram of the head and neck demonstrating total occlusion of the right vertebral artery, stenosis at the origin of the left vertebral artery with anterior to posterior collateral blood flow, old right cerebellar infarction, CT angiogram of the chest demonstrating no pulmonary embolism, echocardiogram demonstrating no evidence of apical thrombus CHIEF COMPLAINT: Acute ataxia and fall SUBJECTIVE: Patient reports that he is still somewhat unsteady on his feet, utilizing walker for balance PHYSICAL EXAM ON DISCHARGE: Systolic blood pressure is 130-150, heart rate 60 to 70, satting well on room air, afebrile overnight, alert awake oriented x3 apparent distress, chronically ill-appearing LABS ON DISCHARGE: Creatinine 1.2, potassium 3.8, glucose 150, LDL 113 HOSPITAL COURSE BY PROBLEM: 1. Acute fall. The patient experienced acute mechanical fall secondary to ataxia from a prior CVA revisited a argueta. The patient did undergo trauma evaluation, it was noted that he did have rib fractures. Given the patient's ongoing fall risk secondary to his gait imbalance, it was recommended that he undergo physical therapy at senior living rehab. 2. Chronic vertebral artery occlusion. It was hypothesized that the patient experienced revisited a revisitation of his old cerebellar infarct in the setting of vertebral artery occlusion with stenosis at the origin of the left versus, requiring anterior posterior collateral circulation. Whenever the patient becomes mildly hypotensive, it is suspected he will experience revisitation symptoms, which include cerebellar signs such as ataxia and weakness. The patient should avoid over treatment for his hypertension. He should also be on dual anti-platelet therapy, as recommended by Neurology. He should also have a goal LDL of 70 or less, and his current LDL is 113. Consequently, the patient was placed on very low-dose statin therapy, given his intolerance to statins in the past. He will have follow-up LDL in 6 weeks, and we highly recommend that he follow up with Neurology as an outpatient. 3. Chronic hypertension. Patient did have an increase in his beta-dora during the past 3 months and this dosage increase may have resulted in orthostasis, resulting in the above. The patient did have positive orthostatics on presentation. Consequently, we have reduced his beta-dora to 12.5 mg twice daily and continue his amlodipine at 5 mg daily his goal systolic blood pressure is 120 to 160, and he has been maintained in that range for 48 hours prior to discharge. 4. Chronic coronary artery disease. Patient did have acute ST depressions on EKG on presentation, but this was in the setting of no chest pain. He is at risk for recurrent coronary disease with [address] Pearl I discussed these findings, and we agreed that the patient should have an outpatient stress test in 1-2 weeks to avoid exacerbating his current presentation. Also possible that ST depressions are secondary to cerebral hypoperfusion which would not be uncommon. Patient was continued on his aspirin , Plavix, beta-dora, statin. 5. Acute rib fractures. Secondary to fall, the patient had adequate pain control with Lidoderm patch, Tylenol, as needed ibuprofen, low-dose opiate pain medication. He should be continued on incentive spirometer. 6. Acute kidney injury on chronic kidney disease stage 3. His initial rise in serum creatinine level 1.5 secondary to hypoperfusion, in the setting of above. The patient received some IV fluids, reduction in his beta-dora, and his creatinine stabilized at 1.2 at time of discharge. 7. Ascending thoracic aortic aneurysm. 4.5 cm, the patient should have outpatient follow-up and surveillance. 8. Pulmonary nodules. Patient should also have outpatient surveillance. 9. Vascular dementia. The patient most likely has a degree of vascular dementia secondary to his previous stroke and intracranial atherosclerosis. The patient is currently on Aricept, he should continue following up with Neurology. Patient's has initial understanding of his dementia, and she should continue to receive education about how to help adjust him into the home setting when he does leave the senior living facility. DISCHARGE MEDICATIONS: Please see official discharge medication reconciliation sheet in chart , Plavix 75 daily added, Coreg reduced to 12.5 mg twice daily, atorvastatin 5 mg daily added DISCHARGE INSTRUCTIONS: Please follow up with Dr. Vazquez in the outpatient setting in 1 week. TIME SPENT: Greater than 30 minutes were spent on direct patient care, as well as discharge planning and preparation.
== END 2017-02-12 14:44 | DRG 57 ==
LOC: EDUNIT# → F3N 16:47
PROVIDERS: ADMIT Hospitalist; ATTEND Internal Medicine
DX: I69.393 Ataxia following cerebral infarction (principal); E86.0 Dehydration; S22.41XA Multiple fractures of ribs, right side, initial encounter for closed fracture; W10.2XXA Fall (on)(from) incline, initial encounter; Y92.828 Other wilderness area as the place of occurrence of the external cause; Y93.01 Activity, walking, marching and hiking; Y99.8 Other external cause status; I67.2 Cerebral atherosclerosis; I10 Essential (primary) hypertension; I25.10 Atherosclerotic heart disease of native coronary artery without angina pectoris; I25.2 Old myocardial infarction; Z95.1 Presence of aortocoronary bypass graft; N17.9 Acute kidney failure, unspecified; N18.3 Chronic kidney disease, stage 3 (moderate); I71.2 Thoracic aortic aneurysm, without rupture; R91.8 Other nonspecific abnormal finding of lung field; F01.50 Vascular dementia, unspecified severity, without behavioral disturbance, psychotic disturbance, mood disturbance, and anxiety; E11.9 Type 2 diabetes mellitus without complications; Z85.46 Personal history of malignant neoplasm of prostate
CPT/HCPCS: 92523-GN; 97116-GP; 97161-GP; 97166-GO; 97530-GP; 97535-GO; A9585; C8924; G8978-GP-CJ; G8979-GP-CI; G8987-GO-CJ; G8988-GO-CI; G9165-GN-CH; G9166-GN-CH; G9167-GN-CH; J1815; Q9957; Q9967

== ENCOUNTER → 2017-06-29 | Outpatient (CLI) | payer OTHER | LOC: FIMAGING 12:21 | PROVIDERS: ATTEND Physician Assistant Medical | DX: N28.9 Disorder of kidney and ureter, unspecified (principal); N33 Bladder disorders in diseases classified elsewhere; Z85.46 Personal history of malignant neoplasm of prostate ==

== ENCOUNTER 2017-07-04 09:35 | Emergency (ER) | payer OTHER ==
[2017-07-04 09:41] VITALS: BP 173/118; PULSE 63; RESP 18; TEMP 97.7; O2SAT 96
--- NOTE | 2017-07-04 09:48 | EDPHY ---
H & P Stated Complaint: fall this morning Time Seen by Provider: 07/04/17 09:47 HPI/ROS: HPI: This is a 77-year-old male presents with Chief Complaint: Fall this morning and chin laceration Location: Chin Quality: Laceration Duration: 1 hr prior to arrival Signs and Symptoms: Denies LOC, denies neck pain, denies headache, + mild bleeding, no radiation, no numbness, no weakness, no tingling, no incontinence, no decreased range of motion, no swelling, no pain Timing: Sudden Severity: Mild Context: Patient was out for morning walk and accidentally tripped over a rock on the trail and fell forward hitting his chin on the ground. He denies LOC/ headache/neck pain. Some fellow walkers found him trying to get up and noticed that he was bleeding on his chin. So they walked him back down to the trail head and his and daughter were notified. Patient reports that he accidentally tripped and denies dizziness/chest pain/shortness of breath/fever/ urinary symptoms. He was ambulatory without assistance. Tetanus up-to-date. Takes baby aspirin daily. and daughter are at bedside and reports that he has mild dementia. He does fall frequently due to balance issues. He was at his baseline mentation this morning and currently. Patient denies any pain and reports that he feels fine. He reports that his daughter made him come to the emergency room for evaluation. Modifying Factors: Direct pressure Comment: ROS: see HPI Constitutional: No fever, no chills, no weight loss Eyes: No blurred vision Respiratory: No shortness of breath, no cough Cardiovascular: No chest pain Gastrointestinal: No nausea, no vomiting no diarrhea Genitourinary: No dysuria Extremities: No myalgias Neurologic: No weakness, no numbness Skin: No rashes Hematologic: No bruising, no bleeding MEDICAL/SURGICAL/SOCIAL HISTORY: Medical/surgical history: htn,heart bypass,niddm, radical prostectomy, R knee arthroscopy, DEMENTIA, Diabetes Social history: . Retired. CONSTITUTIONAL: Pleasant elderly white male, nontoxic in appearance, awake and alert, no obvious distress HEENT: Superficial abrasion noted to inferior portion of chin; 4 mm in diameter with small pinpoint area of slow bleed noted at 12:00 position, and normocephalic, PERRL, EOMI. no globe entrapment, no raccoon eyes. no Bartlett signs.Tympanic membranes clear. No tympanic membrane rupture. Nares patent; no septal hematoma. Oropharynx clear, no exudate and moist pink mucosa. No malocclusion. no dental trauma. Airway patent. No lymphadenopathy. NECK: supple, no midline tenderness, flexion 45 degrees, extension 45 degrees, right and left lateral flexion 45 degrees. No meningismus. Cardiovascular: Normal S1/S2, mid sternal well-healed sternotomy incision noted , regular rate, regular rhythm, without murmur rub or gallop. PULMONARY/CHEST: Symmetrical and nontender. no crepitus. Clear to auscultation bilaterally. Good air movement. No accessory muscle usage. ABDOMEN: Soft, nondistended, nontender, no ecchymosis, no rebound, no guarding , no peritoneal signs, no masses or organomegaly. No CVAT. PELVIC: no pain with rocking; bilateral hips flexion 125 degrees, extension 30 degrees, with no pain internal rotation and no pain external rotation. BACK: No midline tenderness, no paraspinous spasm, deep tendon reflexes 2/2, no pain with straight leg raise EXTREMITIES: 2/2 pulses, no deformities, no clubbing, no cyanosis or edema. NEUROLOGICAL: no focal neuro deficits. GCS 15. SKIN: Warm and dry, no erythema. no rash. Good capillary refill. Source: Patient, Family (Daughter, ) Exam Limitations: Other (Dementia) - Personal History Current Tetanus/Diphtheria Vaccine: Yes Current Tetanus Diphtheria and Acellular Pertussis (TDAP): Yes Tetanus Vaccine Date: 2015 - Medical/Surgical History Hx Asthma: No Hx Chronic Respiratory Disease: No Hx Diabetes: Yes Hx Cardiac Disease: Yes Hx Renal Disease: No Hx Cirrhosis: No Hx Alcoholism: No Hx HIV/AIDS: No Hx Splenectomy or Spleen Trauma: No Other PMH: htn,heart bypass,niddm, radical prostectomy, R knee arthroscopy, DEMENTIA, Diabetes - Social History Smoking Status: Former smoker Constitutional: Initial Vital Signs Temperature (C) 36.5 C 07/04/17 09:38 Heart Rate 63 07/04/17 09:38 Respiratory Rate 18 07/04/17 09:38 Blood Pressure 173/118 H 07/04/17 09:38 O2 Sat (%) 96 07/04/17 09:38 O2 Delivery Mode Room Air Allergies/Adverse Reactions: famotidine [From Pepcid] Allergy (Severe, Verified 07/04/17 09:37) Itching Home Medications: Medication Instructions Recorded Ascorbic Acid [Vitamin C 500 mg 500 mg PO DAILY 04/22/16 (*)] Cholecalciferol Vit D3 [Vitamin D3 1,000 units PO DAILY 04/22/16 (*)] Donepezil HCl [Aricept 5 MG (*)] 5 mg PO DAILY 04/22/16 Oxybutynin Chloride [Ditropan] 10 mg PO DAILY 04/22/16 Sertraline HCl [Zoloft 25mg (*)] 25 mg PO HS 04/22/16 amLODIPine BESYLATE [Norvasc 5 mg 5 mg PO HS 04/22/16 (*)] Aspirin EC [Aspirin EC 81 mg (*)] 81 mg PO DAILY 02/09/17 Acetaminophen [Tylenol 325mg (*)] 650 mg PO Q4HRS PRN #0 tab 02/12/17 Atorvastatin Calcium [Lipitor 10 5 mg PO DAILY tab 02/12/17 mg (*)] Carvedilol [Coreg (*)] 12.5 mg PO BIDMEAL tab 02/12/17 Clopidogrel Bisulfate [Plavix (*)] 75 mg PO DAILY tab 02/12/17 Lidocaine 5% [Lidoderm 5% Patch 1 ea TD DAILY patch 02/12/17 (*)] Liraglutide [Victoza 3-Dio] 0.6 mg SC HS #0 02/12/17 Patch Removal 1 ea TD DAILY21 patch 02/12/17 Polyethylene Glycol 3350 [Miralax 17 gm PO DAILY PRN #0 pkt 02/12/17 17 gm (*)] Sennosides/Docusate Sodium 1 - 2 tab PO BID tab 02/12/17 [Senokot-S] oxyCODONE IR [Oxycodone Ir (*)] 2.5 mg PO Q4HRS PRN #0 tab 02/12/17 Medical Decision Making ED Course/Re-evaluation: Offered head CT scan as patient has dementia and unwitnessed fall. Patient is adamant that he did not lose LOC, accidentally fall due to tripping over stone, and and daughter at bedside reports that he is at his baseline mentation do not wish to proceed with CT head imaging which I deem is reasonable. Tetanus up-to-date No signs of neurovascular compromise/tenting of skin/compartment syndrome/ extremities and joints examined above and below area of concern and are neurovascularly intact. Superficial abrasion to chin cleaned with mild soap and water/irrigated copiously/Surgifoam placed with good hemostasis, clean sterile dressing applied. No sutures indicated. This patient was seen under the supervision of my secondary supervising physician. I evaluated care for this patient independently. Discussed this patient with Dr. Pelayo who did not see the patient. Differential Diagnosis: Differential diagnosis includes but is not limited to mechanical fall, concussion, intracranial hemorrhage, oral trauma, mandible fracture. Departure - Departure Disposition: Home, Routine, Self-Care Clinical Impression: Abrasion of chin without infection Accidental fall Qualifiers: Encounter type: initial encounter Qualified Code(s): W19.XXXA - Unspecified fall, initial encounter Condition: Good Instructions: Abrasion (ED) Additional Instructions: Keep the dressing dry and in place for 48 hours. After 48 hours, you may remove the dressing; wash the site daily with mild soap and water; then pat dry. Avoid shaving until abrasion fully heals on chin. If bleeding starts, apply direct pressure until it stops. Please monitor for signs and symptoms of concussion or mental status changes. If any of these occur please return to the emergency room immediately for re- evaluation. Referrals: STEPHENIE HINSON [Primary Care Provider] - As per Instructions
== END 2017-07-04 10:32 | disposition home or self-care (01) ==
DX: S00.81XA Abrasion of other part of head, initial encounter (principal); E11.9 Type 2 diabetes mellitus without complications; I10 Essential (primary) hypertension; Z87.891 Personal history of nicotine dependence; Z79.82 Long term (current) use of aspirin; W01.198A Fall on same level from slipping, tripping and stumbling with subsequent striking against other object, initial encounter; Y99.8 Other external cause status; Y93.01 Activity, walking, marching and hiking

== ENCOUNTER → 2017-07-09 | Outpatient (CLI) | payer OTHER | LOC: BHFA 09:30 | PROVIDERS: ATTEND Internal Medicine Cardiovascular Disease | DX: I25.5 Ischemic cardiomyopathy (principal); I50.9 Heart failure, unspecified | CPT/HCPCS: 78452; 93017; A9500; J2785 ==

== ENCOUNTER → 2017-11-12 | Outpatient (CLI) | payer OTHER | LOC: FIMAGING 09:53 | PROVIDERS: ATTEND Specialist | DX: N28.1 Cyst of kidney, acquired (principal); N20.0 Calculus of kidney; R91.1 Solitary pulmonary nodule; I51.7 Cardiomegaly; Z90.79 Acquired absence of other genital organ(s); Z95.818 Presence of other cardiac implants and grafts ==